=== PATIENT | female | born 1975 | race Caucasian/White ===

== ENCOUNTER 2017-06-09 13:51 | Emergency (ER) | payer SELFPAY ==
[2017-06-09] MEDS ORDERED: diphenhydrAMINE HCL 50 MG/ML VIAL IV ONE (14:17)
[2017-06-09] MEDS ORDERED: METOCLOPRAMIDE HCL 5 MG/ML VIAL IV ONE (14:17)
[2017-06-09] MEDS ORDERED: NORMAL SALINE 1,000 ML IV ONE (14:17)
[2017-06-09] MEDS ORDERED: METOCLOPRAMIDE HCL 5 MG/ML VIAL ONE (14:37)
[2017-06-09] MEDS ORDERED: diphenhydrAMINE HCL 50 MG/ML VIAL ONE (14:37)
--- NOTE | 2017-06-09 15:00 | ERNOTE ---
Headache ER HPI - General Presenting Symptoms: headache Time Seen by Provider: 06/09/17 14:13 Source: patient - Immun/Allergies/Home Medications Immunizations: IMMUNIZATION HX Immunizations Up to Date Yes History of Influenza Vaccine Yes Hx Pneumococcal Vaccination No Allergies/Adverse Reactions: Allergies No Known Allergies Allergy (Verified 06/09/17 14:10) Home Medications: HOME MEDICATIONS Prochlorperazine Maleate [Compazine] 10 mg PO QID PRN #30 tab 06/09/17 [Last Taken Unknown] - History of Present Illness Narrative: Patient has one of her typical migraine headaches that started yesterday and she describes mild photophobia, nausea and moderate throbbing. Timing of Headache: gradual Quality: Present: throbbing Severity Maximum: Present: moderate Severity-Currently: Present: moderate Headache frequency: Present: frequent headaches Associated Symptoms: Reports: nausea Review of Systems - Review of Systems Constitutional: Present: See HPI EYE: Present: no symptoms reported ENT: Present: no symptoms reported Respiratory: Present: no symptoms reported Cardiology: Present: no symptoms reported Gastrointestinal/Abdominal: Present: no symptoms reported Genitourinary: Present: no symptoms reported Musculoskeletal: Present: no symptoms reported Skin: Present: no symptoms reported Neurological: Present: headache Endocrine: Present: no symptoms reported Hematologic/Lymphatic: Present: no symptoms reported Psych: Present: no symptoms reported - Patient's Past Medical History Patient History - Medical: GERD, Headache - migraine Patient History - Cardiac/Respiratory: Hypertension, Hyperlipidemia Patient History - Cancer: No Hx of Cancer Patient History - Surgical Procedures: Tubal Ligation Patient History - Other: None LMP (females 10-50): 1 month - Family History Mother Family History - Medical: No pertinent hx Father Family History - Medical: - Social History Living Situations: spouse Abuse History: No History of abuse Psych History: No pertinent hx Does anyone smoke in the home?: No Smoking Status: Never smoker Alcohol Use: none Drug Use: none - Immunizations Immunizations Up to Date: Yes Hx Pneumococcal Vaccination: No History of Influenza Vaccine: Yes Physical Exam - Physical Exam General Appearance: Present: wd/wn, alert, moderate distress Eye Exam: Normal inspection: bilateral, PERRL: bilateral Ears, Nose, Throat: Present: normal ENT inspection, H, normal pharynx Neck: Present: normal inspection, nontender Respiratory: Present: no respiratory distress, normal breath sounds, no accessory muscle use, chest nontender, lungs clear Cardiovascular/Chest: Present: regular rate, rhythm, no murmur, normal peripheral pulses Gastrointestinal/Abdominal: Present: normal bowel sounds, nontender, nondistended, soft, no organomegaly Rectal Exam: Present: deferred Back Exam: Present: normal inspection, normal range of motion Extremity Exam: Present: normal inspection, non-tender, no edema, normal range of motion Neurological Exam: Present: alert, oriented, normal mood/affect Skin Exam: Present: normal color, warm/dry Lymphatic Exam: Present: no adenopathy ED Progress - Vital Signs Patient's Vital Signs:: I have reviewed the patient's vital signs. Vital Signs: Vital Signs 06/09/17 14:06 Temperature 36.5 C Pulse Rate 105 H Respiratory 18 Rate Blood Pressure 153/99 O2 Sat by Pulse 97 Oximetry - Progress/Reassessment Chief Complaint: Headache Progress:: Improved Plan - Plan Plan: Patient feels much better and is ready to be discharged. We'll try a prescription of Compazine orally that she can take and add Benadryl to that and see if that will help her with any breakthrough migraines that she has at home. Departure Clinical Impression: Migraine Qualifiers: Migraine type: with aura Status migrainosus presence: without status migrainosus Intractability: not intractable Qualified Code(s): G43.109 - Migraine with aura, not intractable, without status migrainosus - Departure Disposition: Home self-care Condition: Good Instructions: Recurrent Migraine Headache, [id number] Prescriptions: Prochlorperazine Maleate [Compazine] 10 mg PO QID PRN #30 tab PRN Reason: Headache
[2017-06-09 15:28] VITALS: BP 134/84
== END 2017-06-09 15:44 | disposition home or self-care (01) ==
LOC: ER 13:51
DX: G43.109 Migraine with aura, not intractable, without status migrainosus (principal)